=== PATIENT | male | born 1995 | race Two or more races ===

== ENCOUNTER 2017-03-12 08:29 | Emergency (ER) | payer MEDICAID ==
[~2017-03-12] VITALS: Ht 180.3 cm; Wt 100.1 kg
[2017-03-12 08:32] VITALS: BP 164/85
[2017-03-12] MEDS ORDERED: LEVO150T PO (08:39)
[2017-03-12] MEDS ORDERED: OXYcodone/APAP 5/325MG TABLET PO ONE (09:00)
[2017-03-12] MEDS ORDERED: OXYcodone/APAP 5/325MG TABLET ONE (09:26)
== END 2017-03-12 10:24 | disposition home or self-care (01) ==
LOC: ED 09:01
DX: M25.512 Pain in left shoulder (principal)
CPT/HCPCS: 99284